=== PATIENT | male | born 1990 | race Caucasian/White ===

== ENCOUNTER 2022-04-01 06:12 | Emergency (ER) | payer OTHER ==
[2022-04-01 06:19] VITALS: RESP 18
[2022-04-01] MEDS ORDERED: ORPHENADRINE 30 MG/ML 2 ML VIAL IM STA (06:26)
[2022-04-01] MEDS ORDERED: KETOROLAC 15 MG/ML 1 ML VIAL IM STA (06:27)
--- NOTE | 2022-04-01 06:37 | ED ---
Back Pain HPI - General Chief Complaint: Back Pain/Injury Stated Complaint: back pain Time Seen by Provider: 04/01/22 06:22 Source: patient, RN notes reviewed, old records reviewed Limitations: no limitations - History of Present Illness Initial Comments: Well-appearing 31-year-old male presents to the emergency room ambulatory with complaints of low back pain since . 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 He has a history of low back pain as well that resolved on its own after 1 month of bedrest he states. He denies any fevers , no nausea, vomiting or diarrhea. No bowel or bladder incontinence. He denies medical history no medications on a daily basis. MD Complaint: back pain -: days(s) (2) Similar Symptoms Previously: Yes Place: work Severity scale (1-10): 7 Quality: aching Consistency: constant Improves With: none Worsens With: movement, deep breaths/cough Context: while lifting, turning/twisting, bending Associated Symptoms: denies other symptoms - Related Data Previous Rx's Medication Instructions Recorded predniSONE [Deltasone] 40 mg PO DAILY #8 tab 04/15/16 Cyclobenzaprine [Flexeril] 10 mg PO TID PRN #15 tab 04/01/22 Lidocaine 5% Patch [Lidoderm] 1 patch TOPICAL DAILY 10 Days #10 04/01/22 patch Allergies Allergy/AdvReac Type Severity Reaction Status Date / Time venom-honey bee Allergy Swelling Verified 04/01/22 06:20 [bee venom (honey bee)] Review of Systems ROS Statement: Those systems with pertinent positive or pertinent negative responses have been documented in the HPI. ROS Other: All systems not noted in ROS Statement are negative. Past Medical History Past Medical History: No Reported History History of Any Multi-Drug Resistant Organisms: None Reported Past Surgical History: No Surgical Hx Reported Past Psychological History: Bipolar Smoking Status: Current every day smoker Past Alcohol Use History: Occasional Past Drug Use History: Marijuana General Exam Limitations: no limitations General appearance: alert, in no apparent distress Head exam: Present: atraumatic Eye exam: Present: normal appearance. Absent: scleral icterus, conjunctival injection Neck exam: Present: full ROM. Absent: meningismus Respiratory exam: Absent: respiratory distress, accessory muscle use Cardiovascular Exam: Present: regular rate Back exam: Present: normal inspection, tenderness (LS spine), paraspinal tenderness. Absent: CVA tenderness (R), CVA tenderness (L), rash noted Expanded Back exam: Absent: saddle anesthesia Back exam: Positive Straight Leg Raise: Left, Right Neurological exam: Present: alert, oriented X3, normal gait Psychiatric exam: Present: normal affect, normal mood Skin exam: Present: warm, dry, intact, normal color. Absent: cyanosis, diaphor etic, petechiae, pallor Course Vital Signs 04/01/22 06:18 Temperature 97.5 F L Pulse Rate 72 Respiratory 18 Rate Blood Pressure 125/79 O2 Sat by Pulse 96 Oximetry Medical Decision Making - Medical Decision Making Patient presents ambulatory with 2 days of low back pain after shoveling concrete at work on . He denies any trauma. No bowel or bladder incontinence, no saddle anesthesia, no fevers. He does have a history of previous low back pain. No concerning red flag symptoms. He will be discharged home with Flexeril and Lidoderm patches directed to take Motrin as needed for pain and follow-up with his primary care doctor next week. He was directed to return to the emergency room with any new or concerning symptoms including fever, inability to ambulate or bowel or bladder incontinence. Patient is agreeable to this plan of care. Case discussed with Dr. Mahajan. Disposition Clinical Impression: Low back pain Disposition: HOME SELF-CARE Condition: Good Instructions (If sedation given, give patient instructions): Acute Low Back Pain (ED), Lower Back Exercises (ED) Additional Instructions: Use Motrin as needed for pain and inflammation. You can also use Lidoderm patches and Flexeril for muscle relaxer as prescribed. Do not drive or drink alcohol when taking Flexeril. Follow-up with the primary care doctor next week. Return to the emergency room with any new or concerning symptoms including fever, loss of bowel or bladder control or inability to ambulate. Prescriptions: Cyclobenzaprine [Flexeril] 10 mg PO TID PRN #15 tab PRN Reason: Muscle Spasm Lidocaine 5% Patch [Lidoderm] 1 patch TOPICAL DAILY 10 Days #10 patch Is patient prescribed a controlled substance at d/c from ED?: No Referrals: None,Stated [Primary Care Provider] - 1-2 days Time of Disposition: 06:40
[2022-04-01] MEDS ORDERED: LIDOCAINE 5% PATCH TOPICAL SCH (07:00)
[2022-04-01 07:21] VITALS: BP 128/79; PULSE 74; TEMP 97.8
== END 2022-04-01 07:21 | disposition home or self-care (01) ==
LOC: EC 06:12
DX: M54.50 Low back pain, unspecified (principal); F17.200 Nicotine dependence, unspecified, uncomplicated; F12.90 Cannabis use, unspecified, uncomplicated; X50.0XXA Overexertion from strenuous movement or load, initial encounter
CPT/HCPCS: 99283; 96372 ×2; J2360; J1885